=== PATIENT | male | born 1995 | race Caucasian/White ===

== ENCOUNTER → 2017-03-19 | Outpatient (CLI) | payer OTHER ==
--- NOTE | 2017-03-19 15:00 | CT ---
EXAM DESCRIPTION: Abdomen/Pelvis w/wo Contrast CLINICAL HISTORY: RLQ ABD MASS COMPARISON: None. TECHNIQUE: Pre and postcontrast CT images of the abdomen and pelvis are obtained using standard imaging protocol. This exam was performed according to our departmental dose-optimization program, which includes automated exposure control, adjustment of the mA and/or kV according to patient size and/or use of iterative reconstruction technique . FINDINGS: Visualized lung bases show no acute findings. The liver, spleen, pancreas, adrenal glands, gallbladder, and abdominal vasculature are unremarkable. Kidneys show tiny less than 2 mm calcifications in the midpole calyces bilaterally. No ureteral calcification or obstruction is seen. Urinary bladder fills with contrast on delayed images and is unremarkable. Prostate is unremarkable. There is a soft tissue attenuation, enhancing mass in the right lower quadrant of the abdomen anterior to the psoas muscle abutting the anterior abdominal wall and measuring approximately 6.9 x 8.30 x 9.5 cm. This may arise from the transversus abdominis muscle. There is mass effect on the internal and external oblique muscles. This mass is adjacent to the appendix, but does not obviously contact the appendix. The mass abuts the cecum. There are less than 1 cm right iliac chain and right lower quadrant mesenteric lymph nodes which are nonspecific. No significant groin adenopathy is seen. Small bowel is unremarkable. The remainder of the colon is unremarkable. The osseous structures show no aggressive bony lesions. IMPRESSION: There is a large 8.3 x 9.5 cm soft tissue attenuation enhancing mass in the right lower quadrant of the abdomen and pelvis. This lesion may arise from the transversus abdominis muscle raising suspicion for sarcoma. Differential includes lymphoma versus pathologic lymphadenopathy possibly related to testicular mass. By history, the patient does not have a testicular mass. Mass arising from the cecum or appendix is considered less likely although within differential. Recommend biopsy and tissue sampling. The testicles are not included in the [id number]. Recommend exclude undescended testicle. Nonspecific borderline lymph nodes in the mesentery of the right lower quadrant and right iliac chain are seen. Electronically signed by: Avery Macias MD 03/19/2017 2:59 PM [employer]
== END ==
LOC: CT 11:55
PROVIDERS: ATTEND Nurse Practitioner Family
DX: R19.03 Right lower quadrant abdominal swelling, mass and lump (principal)

== ENCOUNTER → 2017-04-02 | Outpatient (CLI) | payer OTHER ==
--- NOTE | 2017-04-02 21:28 | US ---
EXAM DESCRIPTION: Biopsy/Needle Guidance: Ultrasound. CLINICAL HISTORY: ANTERIOR RIGHT PERITONEAL MASS COMPARISON: CT scan of abdomen 03/19/2017. TECHNIQUE: Procedure explained to the patient with risks and benefits. Patient gave verbal and written consent. Supine on ultrasound table Transcutaneous scanning: Two-dimensional mode, prior to the procedure to localize the mass abutting the anterior abdominal wall in the right lower quadrant of the abdomen Sterile preparation and draping. Local skin anesthetic, prior to incision, made anterior and medial to the mass. 14 gauge Pro[employer]opty 9/11 cm core biopsy system was utilized without introducing trocar. 5 samples were obtained of the abdominal mass. Final 2 samples were elongated white-red solid cores. No immediate complications. Minimal hemorrhage. Incision site sutured with 3-0 Vicryl followed by skin dressing. Patient discharged home after 30 min observation in good condition, accompanied by family member. Specimens to be sent to remote pathology laboratory for evaluation. FINDINGS: Heterogeneous solid mass abutting the anterior abdominal wall in the right lower quadrant of the abdomen. Long axis is 10.8 cm. 9.3 x 6.9 cm in the sagittal plane with mass effect on the abdominal wall. Lower echoes in the central mass may represent areas of necrosis. Initial specimens were bloody, fragmented, and necrotic. Final 2 specimens were elongated, solid, red-white cores. IMPRESSION: Successful, ultrasound-guided, needle core biopsy of peritoneal mass abutting the anterior abdominal wall in the right lower quadrant. Pathology results are pending. Electronically signed by: Severo Bruner MD 04/02/2017 9:28 PM [employer] Workstation: [employer]
== END ==
LOC: US 07:30
PROVIDERS: ATTEND Nurse Practitioner Family
DX: R19.03 Right lower quadrant abdominal swelling, mass and lump (principal)

== ENCOUNTER → 2017-08-11 | Outpatient (CLI) | payer OTHER ==
--- NOTE | 2017-08-11 16:20 | US ---
EXAM DESCRIPTION: Venous,Lower Extremity LT: ULTRASOUND. CLINICAL HISTORY: PHLEBITIS AND THROMBOPHLEBITIS OF FEMORAL VEIN BILATERAL COMPARISON: Duplex ultrasound evaluation of the right lower extremity deep venous system. TECHNIQUE: Two -dimensional and doppler sonographic evaluation of the deep venous system of the left lower extremity. FINDINGS: Doppler evaluation shows normal color flow and normal phasicity and augmentation of the left common femoral vein, femoral vein, popliteal vein, greater saphenous vein, peroneal, and posterior tibial vein. The left lower extremity deep veins showed normal occlusion with transducer pressure. Two-dimensional survey showed no echogenic thrombus within these veins. IMPRESSION: Duplex ultrasound evaluation of the left lower extremity deep venous system showing no evidence of thrombosis or embolism. Electronically signed by: Severo Bruner MD 08/11/2017 4:19 PM CDT
--- NOTE | 2017-08-11 16:26 | US ---
EXAM DESCRIPTION: Venous,Lower Extremity RT: ULTRASOUND. CLINICAL HISTORY: PHLEBITIS AMD THROMBOPHLEBITIS OF FEMORAL VESSELS. COMPARISON: Duplex ultrasound evaluation of the left lower extremity veins on the same visit. TECHNIQUE: Two -dimensional and doppler sonographic evaluation of the deep venous system of the right lower extremity. FINDINGS: Doppler evaluation shows normal color flow and normal phasicity and augmentation of the right common femoral vein, femoral vein, popliteal vein, greater saphenous vein, peroneal, and posterior tibial vein. The right lower extremity deep veins showed normal occlusion with transducer pressure. Two-dimensional survey showed no echogenic thrombus within these veins. IMPRESSION: Duplex ultrasound evaluation of the right lower extremity deep venous system showing no evidence of thrombosis or embolism. Electronically signed by: Severo Bruner MD 08/11/2017 4:25 PM CDT
== END ==
LOC: US 11:19
PROVIDERS: ATTEND Nurse Practitioner Family
DX: I80.13 Phlebitis and thrombophlebitis of femoral vein, bilateral (principal)